=== PATIENT | male | born 1960 | race African-American/Black ===

== ENCOUNTER 2017-09-11 00:11 | Emergency (ER) | payer OTHER ==
[~2017-09-11] VITALS: Ht 190.5 cm; Wt 104.5 kg
[2017-09-11] MEDS ORDERED: ATROPINE SULFATE 0.1 MG/ML 10 ML SYRINGE IVP ONE (00:13)
[2017-09-11] MEDS ORDERED: SUCCINYLCHOLINE CHLORIDE 20 MG/ML 10 ML VIAL IV ONE (00:13)
[2017-09-11] MEDS ORDERED: SODIUM BICARBONATE [ADULT] 8.4% 50 MEQ/50 ML SYRINGE IVP ONE (00:13)
[2017-09-11] MEDS ORDERED: EPINEPHrine 1:10,000 [1 MG/10 ML] SYRINGE IVP ONE (00:13)
[2017-09-11] MEDS ORDERED: ETOMIDATE 2 MG/ML 10 ML VIAL IV ONE (00:13)
[2017-09-11] MEDS ORDERED: NITROGLYCERIN 2% (1 GM=INCH) PACKET TP ONE ×2 (00:14→00:45)
[2017-09-11 00:23] LABS: SOURCE, BLOOD GAS ARTERIAL; TEMPERATURE, FAHRENHEIT, BG 98.6 FAHREN (96.0-98.6)
[2017-09-11] MEDS ORDERED: SUCCINYLCHOLINE CHLORIDE 20 MG/ML 10 ML VIAL IVP ONE (00:30)
[2017-09-11] MEDS ORDERED: ETOMIDATE 2 MG/ML 10 ML VIAL IVP ONE (00:30)
[2017-09-11] MEDS ORDERED: NOREPINEPHRINE 4 MG/D5%-WATER 0 ML IV ONE (00:37)
[2017-09-11 00:43] LABS: GLUCOSE,POINT OF CARE 274 MG/DL (70-110)
[2017-09-11 00:43] LABS: ABG BASE EXCESS -17.6 mmol/L (-2.0-3.0); ABG CARBOXYHEMOGLOBIN 4.4 % (0.0-1.5); ABG HCO3 10.6 mmol/L (22.0-26.0); ABG METHEMOGLOBIN 0.6 % (0.0-1.5); ABG OXYGEN CONTENT 19.1 mL/dL (15.0-23.0); ABG OXYGEN SATURATION 89.7 % (95.0-98.0); ABG OXYHEMOGLOBIN 85.2 % (94.0-100.0); ABG TOTAL HEMOGLOBIN 15.9 G/dL (12.0-18.0); PO2, ARTERIAL BG 90.6 mmHg (84.0-92.0)
[2017-09-11 00:45] LABS: ABG PCO2 82 mmHg (35-45); O2 DEVICE,BLOOD GAS VENTILATOR (ROOM AIR); PEEP,BG 5 cm H2O; SITE, BLOOD GAS RT RADIAL; VT, ABG 550 ml
[2017-09-11 00:51] LABS: BASOPHILS % (AUTO) 0.4 % (0.0-2.0); EOSINOPHILS % (AUTO) 1.3 % (1.0-6.0); HEMATOCRIT 53.5 % (41-53); HEMOGLOBIN 17.6 g/dL (13.5-17.5); LYMPHOCYTES # (AUTO) 9.3 K/uL (1.0-4.8); LYMPHOCYTES % (AUTO) 57.7 % (22.0-44.0); MEAN CORPUSCULAR HEMOGLOBIN 31.9 pg (26.0-34.0); MEAN CORPUSCULAR HGB CONC 32.9 G/dL (31.0-37.0); MEAN CORPUSCULAR VOLUME 97 fL (80-100); MONOCYTES # (AUTO) 1.1 K/uL (0.1-1.0); MONOCYTES % (AUTO) 6.9 % (2.0-9.0); NEUTROPHILS # (AUTO) 5.5 K/uL (1.8-7.7); NEUTROPHILS % (AUTO) 33.7 % (40.0-70.0); RED BLOOD CELL COUNT(AUTO) 5.51 MIL/uL (4.50-5.90); RED CELL DISTRIBUTION WIDTH 17.8 % (11.5-14.5)
[2017-09-11] MEDS ORDERED: FOLI1 PO (00:52)
[2017-09-11] MEDS ORDERED: ASPI-1182 PO (00:52)
[2017-09-11] MEDS ORDERED: ALFU10TA30 PO (00:52)
[2017-09-11] MEDS ORDERED: FOLI1TAB15 PO (00:52)
[2017-09-11] MEDS ORDERED: GABA-531 PO (00:52)
[2017-09-11] MEDS ORDERED: DOCU250C91 PO (00:52)
[2017-09-11] MEDS ORDERED: ATOR40TA28 PO (00:52)
[2017-09-11] MEDS ORDERED: HYPR15DR23 OU (00:52)
[2017-09-11] MEDS ORDERED: LISI1TAB9 PO (00:52)
[2017-09-11] MEDS ORDERED: CARV25 PO (00:52)
[2017-09-11] MEDS ORDERED: NAPR-58 PO (00:56)
[2017-09-11] MEDS ORDERED: TIMO.25OS OP (00:56)
[2017-09-11] MEDS ORDERED: [UNRECOGNIZED DRUG - CODE] PO (00:56)
[2017-09-11] MEDS ORDERED: MIRALAX PO (00:56)
[2017-09-11] MEDS ORDERED: CHOL50004 PO (00:56)
[2017-09-11] MEDS ORDERED: TRAM50TA4 PO (00:56)
[2017-09-11] MEDS ORDERED: GLUC-236 PO (00:56)
[2017-09-11] MEDS ORDERED: IOVERSOL 350 MG/ML 150 ML VIAL ONE (00:59)
[2017-09-11] MEDS ORDERED: SODIUM CHLORIDE 0.9% 100 ML ONE (00:59)
[2017-09-11] MEDS ORDERED: NITROGLYCERIN 50 MG/D5% WATER 250 ML IV PRN (01:00)
[2017-09-11] MEDS ORDERED: PROPOFOL 1000 MG/ISO-OSM 100 ML IV PRN (01:00)
[2017-09-11 01:02] LABS: ALANINE AMINOTRANSFERASE 102 U/L (12-78); ALKALINE PHOSPHATASE 105 U/L (46-116); ANION GAP 16 mmol/L (8-16); ASPARTATE AMINOTRANSFERASE 137 U/L (15-37); BILIRUBIN,TOTAL 0.4 mg/dL (0.1-1.0); CALCIUM, TOTAL 8.3 mg/dL (8.8-10.5); CARBON DIOXIDE 22 mmol/L (22-29); CHLORIDE 104 mmol/L (98-107); CREATINE KINASE, TOTAL 181 U/L (39-308); CREATININE 1.88 mg/dL (0.60-1.30); GLOMERULAR FILTR. RATE CALC 45 mL/min (>60); GLUCOSE,RANDOM 268 mg/dL (70-110); POTASSIUM 3.6 mmol/L (3.5-5.1); SODIUM SERUM 142 mmol/L (136-145); UREA NITROGEN, BLOOD 14 mg/dL (7-18)
[2017-09-11 01:03] LABS: ALBUMIN 3.9 g/dL (3.4-5.0)
[2017-09-11] MEDS ORDERED: MIDAZOLAM HCL 2 MG/2 ML VIAL ONE (01:13)
[2017-09-11 01:18] LABS: CREATINE KINASE MB 1.4 ng/mL (0-5)
[2017-09-11 01:28] VITALS: BP 103/77
[2017-09-11 01:29] LABS: B-TYPE NATRIURETIC PEPTIDE 779 pg/mL (0-100)
[2017-09-11 01:30] LABS: PLATELET COUNT (AUTO) 129 K/uL (150-450); PLATELET MORPHOLOGY COMMENT GIANT PLTS PRESENT
[2017-09-11] MEDS ORDERED: HEPARIN SODIUM,PORCINE 5,000 UNITS/ML VIAL IVP ONE ×2 (01:30→02:45)
[2017-09-11] MEDS ORDERED: ASPIRIN 300 MG RECTAL SUPPOSITORY PR ONE ×2 (01:30→01:45)
[2017-09-11] MEDS ORDERED: HEPARIN SODIUM 25000 UNITS/D5W 250 ML IV PRN (02:08)
[2017-09-11] MEDS ORDERED: HEPARIN SODIUM,PORCINE 5,000 UNITS/ML VIAL IVP PRN ×2 (02:15)
[2017-09-11 02:25] LABS: APPEARANCE,URINE CLOUDY (CLEAR); BILIRUBIN,URINE NEGATIVE (NEGATIVE); GLUCOSE, URINE (UA) 500 mg/dL (NEGATIVE); KETONES,URINE NEGATIVE (NEGATIVE); LEUKOCYTE ESTERASE ,URINE NEGATIVE (NEGATIVE); NITRATE,URINE NEGATIVE (NEGATIVE); OCCULT BLOOD,URINE MODERATE (NEGATIVE); PH,URINE 6.5 (5.0-8.0); PROTEIN,URINE SEE CONFIRM (NEGATIVE)
[2017-09-11 02:33] LABS: PROTHROMBIN TIME 10.9 SEC (9.4-11.6)
[2017-09-11 03:03] LABS: BACTERIA,URINE Rare /HPF (None Seen); SULFOSALICYLIC ACID,URINE 3+ (Negative); WBC,URINE 0-2 /HPF (0-5)
== END 2017-09-11 02:50 | disposition short-term general hospital (02) ==
LOC: EMS 00:12
DX: I21.3 ST elevation (STEMI) myocardial infarction of unspecified site (principal); J96.01 Acute respiratory failure with hypoxia; I11.0 Hypertensive heart disease with heart failure; I50.9 Heart failure, unspecified; E87.2 Acidosis; I25.10 Atherosclerotic heart disease of native coronary artery without angina pectoris; E78.00 Pure hypercholesterolemia, unspecified; Z79.82 Long term (current) use of aspirin; Z88.8 Allergy status to other drugs, medicaments and biological substances
CPT/HCPCS: 31500; 51702; 71045; 80053; 81001; 82550; 82553; 82805; 82962; 83880; 84484; 85025; 85379; 85610; 85730; 87040; 92950 ×2; 93005; 96374; 99291; J0171; J0330; J0461; J1644 ×2; J2704; J3490 ×3; J7050; Q9967; 94002; J2250